=== PATIENT | male | born 1965 | race Caucasian/White ===

== ENCOUNTER 2018-07-18 11:19 | Inpatient (IN) | payer OTHER ==
[~2018-07-18] VITALS: Ht 170.2 cm; Wt 55.9 kg
[2018-07-18] MEDS ORDERED: SODIUM CHLORIDE 0.9% 1,000 ML IV ONE ×2 (12:21→20:30)
[2018-07-18] MEDS ORDERED: ACETAMINOPHEN 325 MG TABLET PO ONE (12:30)
[2018-07-18 12:46] LABS: APPEARANCE,URINE CLEAR (CLEAR); BILIRUBIN,URINE NEGATIVE (NEGATIVE); GLUCOSE, URINE (UA) NEGATIVE (NEGATIVE); KETONES,URINE NEGATIVE (NEGATIVE); LEUKOCYTE ESTERASE ,URINE NEGATIVE (NEGATIVE); NITRATE,URINE NEGATIVE (NEGATIVE); OCCULT BLOOD,URINE NEGATIVE (NEGATIVE); PROTEIN,URINE NEGATIVE (NEGATIVE)
[2018-07-18 13:04] LABS: INFLUENZA TYPE A NEGATIVE FOR TYPE A (NEGATIVE); INFLUENZA TYPE B NEGATIVE FOR TYPE B (NEGATIVE)
[2018-07-18 13:22] LABS: BASOPHILS % (AUTO) 1.9 % (0.0-2.0); EOSINOPHILS % (AUTO) 0.8 % (1.0-6.0); HEMATOCRIT 28.8 % (41-53); HEMOGLOBIN 9.7 g/dL (13.5-17.5); LYMPHOCYTES # (AUTO) 0.5 K/uL (1.0-4.8); LYMPHOCYTES % (AUTO) 61.4 % (22.0-44.0); MEAN CORPUSCULAR HEMOGLOBIN 30.5 pg (26.0-34.0); MEAN CORPUSCULAR HGB CONC 33.5 G/dL (31.0-37.0); MEAN CORPUSCULAR VOLUME 91 fL (80-100); MONOCYTES # (AUTO) 0.2 K/uL (0.1-1.0); NEUTROPHILS # (AUTO) 0.1 K/uL (1.8-7.7); NEUTROPHILS % (AUTO) 14.9 % (40.0-70.0); PLATELET COUNT (AUTO) 116 K/uL (150-450); RED BLOOD CELL COUNT(AUTO) 3.16 MIL/uL (4.50-5.90); RED CELL DISTRIBUTION WIDTH 16.5 % (11.5-14.5)
[2018-07-18] MEDS ORDERED: AZITHROMYCIN 500 MG/NS 250 ML IV ONE (13:30)
[2018-07-18] MEDS ORDERED: CefTRIAXone 1 GM/DEXTROSE 50 ML IV ONE (13:30)
[2018-07-18 13:37] LABS: ANION GAP 7 mmol/L (8-16); CALCIUM, TOTAL 7.7 mg/dL (8.8-10.5); CARBON DIOXIDE 29 mmol/L (22-29); CHLORIDE 99 mmol/L (98-107); CREATININE 0.36 mg/dL (0.60-1.30); GLOMERULAR FILTR. RATE CALC > 60 mL/min (>60); GLUCOSE,RANDOM 80 mg/dL (70-110); INR 0.9 (0.9-1.1); POTASSIUM 4.4 mmol/L (3.5-5.1); PROTHROMBIN TIME 9.5 SEC (9.4-11.6); SODIUM SERUM 135 mmol/L (136-145); UREA NITROGEN, BLOOD 10 mg/dL (7-18)
[2018-07-18 13:42] LABS: ALANINE AMINOTRANSFERASE 379 U/L (12-78); ALBUMIN 1.8 g/dL (3.4-5.0); ALKALINE PHOSPHATASE 179 U/L (46-116); ASPARTATE AMINOTRANSFERASE 134 U/L (15-37); BILIRUBIN,TOTAL 0.5 mg/dL (0.1-1.0); CREATINE KINASE, TOTAL ONLY 29 U/L (39-308)
[2018-07-18 13:47] LABS: LACTIC ACID 1.5 mmol/L (0.4-2.0)
[2018-07-18] MEDS ORDERED: ACETAMINOPHEN 325 MG TABLET PO PRN (14:00)
[2018-07-18] MEDS ORDERED: ONDANSETRON HCL 4 MG/2 ML VIAL IVP PRN (14:00)
[2018-07-18 15:59] VITALS: BP 122/77
[2018-07-18] MEDS: LEVOFLOXACIN 750 MG/D5% WATER 150 ML IV SCH (18:01)
[2018-07-18] MEDS ORDERED: MAGNESIUM HYDROXIDE SUSPENSION 30 ML UDCUP PO PRN (20:15)
[2018-07-18] MEDS ORDERED: BISACODYL 10 MG RECTAL RECTAL SUPPOSITORY PR PRN (20:15)
[2018-07-18 20:24] VITALS: BP 133/77
[2018-07-18] MEDS: CEFEPIME HCL 2 GM in DEXTROSE 5%-WATER 50 ML IV SCH (20:59)
[2018-07-18] MEDS: DOCUSATE SODIUM 100 MG CAPSULE PO SCH (20:59)
[2018-07-18] MEDS: ZOLPIDEM TARTRATE 5 MG TABLET PO PRN (21:14)
[2018-07-18 23:45] VITALS: BP 137/91
[2018-07-18] MEDS: HEPARIN SODIUM,PORCINE 5,000 UNITS/ML VIAL SQ SCH (23:46)
[2018-07-19] MEDS: ACETAMINOPHEN 325 MG TABLET PO PRN ×2 (00:28→05:26)
[2018-07-19] MEDS: CEFEPIME HCL 2 GM in DEXTROSE 5%-WATER 50 ML IV SCH ×3 (04:08→20:30)
[2018-07-19 04:42] VITALS: BP 143/97
[2018-07-19 08:11] VITALS: BP 147/93
[2018-07-19] MEDS: DOCUSATE SODIUM 100 MG CAPSULE PO SCH ×2 (08:19→20:13)
[2018-07-19] MEDS: PANTOPRAZOLE SODIUM 40 MG DR TABLET PO SCH (08:19)
[2018-07-19] MEDS: HEPARIN SODIUM,PORCINE 5,000 UNITS/ML VIAL SQ SCH ×2 (08:19→15:00)
[2018-07-19] MEDS ORDERED: MORPHINE SULFATE 4 MG/ML SYRINGE IVP PRN (10:45)
[2018-07-19 11:00] VITALS: BP 140/88
[2018-07-19] MEDS ORDERED: SODIUM CHLORIDE 0.9% 500 ML IV ONE (11:21)
[2018-07-19] MEDS: ONDANSETRON HCL 4 MG/2 ML VIAL IVP PRN (14:59)
[2018-07-19] MEDS: MORPHINE SULFATE 4 MG/ML SYRINGE IVP PRN ×2 (14:59→20:08)
[2018-07-19 15:07] VITALS: BP 135/87
[2018-07-19 16:01] LABS: HEMATOCRIT 36.2 % (41-53); HEMOGLOBIN 11.8 g/dL (13.5-17.5); MEAN CORPUSCULAR HEMOGLOBIN 29.7 pg (26.0-34.0); MEAN CORPUSCULAR HGB CONC 32.6 G/dL (31.0-37.0); MEAN CORPUSCULAR VOLUME 91 fL (80-100); PLATELET COUNT (AUTO) 155 K/uL (150-450); RED BLOOD CELL COUNT(AUTO) 3.98 MIL/uL (4.50-5.90); RED CELL DISTRIBUTION WIDTH 17.6 % (11.5-14.5)
[2018-07-19] MEDS: LEVOFLOXACIN 750 MG/D5% WATER 150 ML IV SCH (17:36)
[2018-07-19] MEDS: HYDROCODONE/ACETAMINOPHEN 5-325 MG TABLET PO PRN ×2 (17:40→23:05)
[2018-07-19 19:15] LABS: BAND NEUTROPHILS % (MANUAL) 0 % (0-5)
[2018-07-19 19:16] LABS: BUFFY COAT SMEAR PREP YES (NOT DONE); EOSINOPHILS % (MANUAL) 1 % (1-6); LYMPHOCYTES % (MANUAL) 56 % (22-44); MONOCYTES % (MANUAL) 19 % (2-9); SEGMENTED NEUTROPHILS % 24 % (40-70)
[2018-07-19 19:29] VITALS: BP 139/85
[2018-07-20 00:09] VITALS: BP 133/80
[2018-07-20] MEDS: MORPHINE SULFATE 4 MG/ML SYRINGE IVP PRN ×4 (00:12→09:01)
[2018-07-20 04:05] VITALS: BP 125/86
[2018-07-20] MEDS: CEFEPIME HCL 2 GM in DEXTROSE 5%-WATER 50 ML IV SCH ×3 (04:55→20:00)
[2018-07-20] MEDS: HYDROCODONE/ACETAMINOPHEN 5-325 MG TABLET PO PRN ×3 (05:34→19:46)
[2018-07-20 07:37] VITALS: BP 131/82
[2018-07-20] MEDS: HEPARIN SODIUM,PORCINE 5,000 UNITS/ML VIAL SQ SCH ×3 (08:00→16:00)
[2018-07-20] MEDS: DOCUSATE SODIUM 100 MG CAPSULE PO SCH ×2 (09:00→21:00)
[2018-07-20] MEDS: PANTOPRAZOLE SODIUM 40 MG DR TABLET PO SCH (09:00)
[2018-07-20 11:40] VITALS: BP 114/79
[2018-07-20 15:34] VITALS: BP 137/60
[2018-07-20] MEDS: LEVOFLOXACIN 750 MG/D5% WATER 150 ML IV SCH (17:11)
[2018-07-21 00:19] VITALS: BP 108/70
[2018-07-21] MEDS: HYDROCODONE/ACETAMINOPHEN 5-325 MG TABLET PO PRN ×5 (00:40→21:27)
[2018-07-21] MEDS: NICOTINE 14 MG/24 HOUR PATCH TD SCH ×2 (01:10→16:02)
[2018-07-21] MEDS: ACETAMINOPHEN 325 MG TABLET PO PRN (03:06)
[2018-07-21 04:00] VITALS: BP 133/84
[2018-07-21] MEDS: CEFEPIME HCL 2 GM in DEXTROSE 5%-WATER 50 ML IV SCH ×3 (04:00→13:25)
[2018-07-21 06:09] LABS: BASOPHILS % (AUTO) 0.4 % (0.0-2.0); EOSINOPHILS % (AUTO) 0.5 % (1.0-6.0); HEMATOCRIT 28.6 % (41-53); HEMOGLOBIN 9.6 g/dL (13.5-17.5); LYMPHOCYTES # (AUTO) 0.7 K/uL (1.0-4.8); LYMPHOCYTES % (AUTO) 30.3 % (22.0-44.0); MEAN CORPUSCULAR HEMOGLOBIN 30.3 pg (26.0-34.0); MEAN CORPUSCULAR HGB CONC 33.7 G/dL (31.0-37.0); MEAN CORPUSCULAR VOLUME 90 fL (80-100); MONOCYTES # (AUTO) 0.5 K/uL (0.1-1.0); MONOCYTES % (AUTO) 21.1 % (2.0-9.0); NEUTROPHILS # (AUTO) 1.1 K/uL (1.8-7.7); NEUTROPHILS % (AUTO) 47.7 % (40.0-70.0); PLATELET COUNT (AUTO) 252 K/uL (150-450); RED BLOOD CELL COUNT(AUTO) 3.18 MIL/uL (4.50-5.90); RED CELL DISTRIBUTION WIDTH 17.2 % (11.5-14.5)
[2018-07-21 07:51] VITALS: BP 127/87
[2018-07-21] MEDS: HEPARIN SODIUM,PORCINE 5,000 UNITS/ML VIAL SQ SCH ×3 (08:00→16:00)
[2018-07-21] MEDS ORDERED: NICOTINE 14 MG/24 HOUR PATCH TD SCH ×2 (09:00)
[2018-07-21] MEDS: DOCUSATE SODIUM 100 MG CAPSULE PO SCH ×2 (09:01→21:20)
[2018-07-21] MEDS: PANTOPRAZOLE SODIUM 40 MG DR TABLET PO SCH (09:02)
[2018-07-21 09:13] LABS: LEGIONELLA PNEUMO AG URINE Negative (Negative); ORGANISM ID Not indicated.; S PNEUMO SOURCE Urine; STREP PNEUMONIAE AG URINE Negative (Negative); STREP.PNEUMO BODY FLUID CULT. Not Indicated
[2018-07-21 11:41] VITALS: BP 129/83
[2018-07-21] MEDS: MORPHINE SULFATE 4 MG/ML SYRINGE IVP PRN ×2 (13:25→19:43)
[2018-07-21 16:00] VITALS: BP 115/83
[2018-07-21] MEDS: LEVOFLOXACIN 250 MG TABLET PO SCH (17:07)
[2018-07-21 19:45] VITALS: BP 126/81
[2018-07-22] VITALS (7 sets, daily range): BP systolic 123–140; BP diastolic 80–92
[2018-07-22] MEDS: ZOLPIDEM TARTRATE 5 MG TABLET PO PRN ×2 (00:10→21:58)
[2018-07-22] MEDS: HYDROCODONE/ACETAMINOPHEN 5-325 MG TABLET PO PRN ×5 (05:15→21:58)
[2018-07-22 06:19] LABS: ALANINE AMINOTRANSFERASE 282 U/L (12-78); ALBUMIN 1.9 g/dL (3.4-5.0); ALKALINE PHOSPHATASE 153 U/L (46-116); ANION GAP 6 mmol/L (8-16); ASPARTATE AMINOTRANSFERASE 149 U/L (15-37); BILIRUBIN,TOTAL 0.5 mg/dL (0.1-1.0); CALCIUM, TOTAL 8.2 mg/dL (8.8-10.5); CARBON DIOXIDE 29 mmol/L (22-29); CHLORIDE 99 mmol/L (98-107); CREATININE 0.53 mg/dL (0.60-1.30); GLOMERULAR FILTR. RATE CALC > 60 mL/min (>60); GLUCOSE,RANDOM 84 mg/dL (70-110); SODIUM SERUM 134 mmol/L (136-145); TOTAL PROTEIN, SERUM 6.1 g/dL (6.4-8.2); UREA NITROGEN, BLOOD 16 mg/dL (7-18)
[2018-07-22] MEDS: MORPHINE SULFATE 4 MG/ML SYRINGE IVP PRN ×2 (06:24→20:37)
[2018-07-22 06:30] LABS: BASOPHILS % (AUTO) 0.3 % (0.0-2.0); EOSINOPHILS % (AUTO) 0.5 % (1.0-6.0); HEMATOCRIT 31.2 % (41-53); HEMOGLOBIN 10.8 g/dL (13.5-17.5); LYMPHOCYTES # (AUTO) 0.8 K/uL (1.0-4.8); LYMPHOCYTES % (AUTO) 23.1 % (22.0-44.0); MEAN CORPUSCULAR HEMOGLOBIN 31.2 pg (26.0-34.0); MEAN CORPUSCULAR HGB CONC 34.5 G/dL (31.0-37.0); MEAN CORPUSCULAR VOLUME 91 fL (80-100); MONOCYTES # (AUTO) 0.7 K/uL (0.1-1.0); MONOCYTES % (AUTO) 18.6 % (2.0-9.0); NEUTROPHILS # (AUTO) 2.1 K/uL (1.8-7.7); NEUTROPHILS % (AUTO) 57.5 % (40.0-70.0); PLATELET COUNT (AUTO) 327 K/uL (150-450); RED BLOOD CELL COUNT(AUTO) 3.45 MIL/uL (4.50-5.90); RED CELL DISTRIBUTION WIDTH 16.8 % (11.5-14.5)
[2018-07-22] MEDS: PANTOPRAZOLE SODIUM 40 MG DR TABLET PO SCH (08:16)
[2018-07-22] MEDS: DOCUSATE SODIUM 100 MG CAPSULE PO SCH ×2 (08:16→20:39)
[2018-07-22] MEDS: LEVOFLOXACIN 250 MG TABLET PO SCH (08:16)
[2018-07-22] MEDS: HEPARIN SODIUM,PORCINE 5,000 UNITS/ML VIAL SQ SCH ×4 (08:16→23:10)
[2018-07-22] MEDS: NICOTINE 14 MG/24 HOUR PATCH TD SCH (08:17)
[2018-07-22] MEDS ORDERED: LEVO250 PO (13:00)
[2018-07-22] MEDS ORDERED: OXYC10 PO (13:01)
[2018-07-23] MEDS: HYDROCODONE/ACETAMINOPHEN 5-325 MG TABLET PO PRN ×2 (03:52→11:59)
[2018-07-23 04:37] VITALS: BP 123/87
[2018-07-23] MEDS: MORPHINE SULFATE 4 MG/ML SYRINGE IVP PRN ×2 (06:50→10:37)
[2018-07-23 07:38] VITALS: BP 136/86
[2018-07-23] MEDS: HEPARIN SODIUM,PORCINE 5,000 UNITS/ML VIAL SQ SCH ×2 (09:04→17:02)
[2018-07-23] MEDS: NICOTINE 14 MG/24 HOUR PATCH TD SCH (09:05)
[2018-07-23] MEDS: LEVOFLOXACIN 250 MG TABLET PO SCH (09:05)
[2018-07-23] MEDS: PANTOPRAZOLE SODIUM 40 MG DR TABLET PO SCH (09:05)
[2018-07-23] MEDS: DOCUSATE SODIUM 100 MG CAPSULE PO SCH ×2 (09:05→20:27)
[2018-07-23 11:10] VITALS: BP 116/88
[2018-07-23] MEDS: OxyCODONE HCL 5 MG IR TABLET PO PRN ×2 (14:50→21:07)
[2018-07-23 15:12] VITALS: BP 115/77
[2018-07-23] MEDS: ONDANSETRON HCL 4 MG/2 ML VIAL IVP PRN (18:59)
[2018-07-23 19:39] VITALS: BP 126/89
[2018-07-23] MEDS: ZOLPIDEM TARTRATE 5 MG TABLET PO PRN (21:12)
[2018-07-24] MEDS: HEPARIN SODIUM,PORCINE 5,000 UNITS/ML VIAL SQ SCH ×3 (00:18→16:00)
[2018-07-24 00:20] VITALS: BP 112/82
[2018-07-24] MEDS: OxyCODONE HCL 5 MG IR TABLET PO PRN ×4 (03:08→22:17)
[2018-07-24] MEDS: ONDANSETRON HCL 4 MG/2 ML VIAL IVP PRN ×2 (03:51→14:01)
[2018-07-24 04:00] VITALS: BP 138/94
[2018-07-24 07:17] VITALS: BP 145/93
[2018-07-24] MEDS: PANTOPRAZOLE SODIUM 40 MG DR TABLET PO SCH (07:59)
[2018-07-24] MEDS: LEVOFLOXACIN 250 MG TABLET PO SCH (07:59)
[2018-07-24] MEDS: DOCUSATE SODIUM 100 MG CAPSULE PO SCH ×2 (08:00→21:00)
[2018-07-24] MEDS: NICOTINE 14 MG/24 HOUR PATCH TD SCH (08:00)
[2018-07-24 11:36] VITALS: BP 127/89
[2018-07-24] MEDS ORDERED: OxyCODONE HCL 5 MG IR TABLET PO ONE (12:15)
[2018-07-24 15:07] VITALS: BP 125/91
[2018-07-24] MEDS ORDERED: SIMETHICONE 80 MG CHEWABLE TABLET CHEW PRN (15:30)
[2018-07-24 19:39] VITALS: BP 135/76
[2018-07-24] MEDS: ZOLPIDEM TARTRATE 5 MG TABLET PO PRN (22:17)
[2018-07-25] VITALS (7 sets, daily range): BP systolic 110–136; BP diastolic 75–91
[2018-07-25] MEDS: OxyCODONE HCL 5 MG IR TABLET PO PRN ×4 (04:08→21:35)
[2018-07-25] MEDS: ONDANSETRON HCL 4 MG/2 ML VIAL IVP PRN (04:09)
[2018-07-25] MEDS: PANTOPRAZOLE SODIUM 40 MG DR TABLET PO SCH (08:25)
[2018-07-25] MEDS: HEPARIN SODIUM,PORCINE 5,000 UNITS/ML VIAL SQ SCH ×3 (08:26→21:38)
[2018-07-25] MEDS: DOCUSATE SODIUM 100 MG CAPSULE PO SCH ×2 (08:26→21:35)
[2018-07-25] MEDS: NICOTINE 14 MG/24 HOUR PATCH TD SCH (08:26)
[2018-07-25] MEDS: LEVOFLOXACIN 250 MG TABLET PO SCH (08:26)
[2018-07-25 11:59] LABS: GLUCOMETER DEV NAME(LOC) 6N.1; GLUCOSE,POINT OF CARE 123 MG/DL (70-110)
[2018-07-25] MEDS: LORazepam 2 MG TABLET PO PRN ×2 (17:16→23:34)
[2018-07-25] MEDS: ZOLPIDEM TARTRATE 5 MG TABLET PO PRN (22:53)
[2018-07-26 04:37] VITALS: BP 130/89
[2018-07-26 07:30] VITALS: BP 139/92
[2018-07-26] MEDS: NICOTINE 14 MG/24 HOUR PATCH TD SCH (08:12)
[2018-07-26] MEDS: HEPARIN SODIUM,PORCINE 5,000 UNITS/ML VIAL SQ SCH ×2 (08:13→19:53)
[2018-07-26] MEDS: LORazepam 2 MG TABLET PO PRN ×3 (08:13→19:53)
[2018-07-26] MEDS: PANTOPRAZOLE SODIUM 40 MG DR TABLET PO SCH (08:13)
[2018-07-26] MEDS: DOCUSATE SODIUM 100 MG CAPSULE PO SCH ×2 (08:13→19:53)
[2018-07-26] MEDS: OxyCODONE HCL 5 MG IR TABLET PO PRN ×3 (10:30→22:34)
[2018-07-26 11:15] VITALS: BP 130/90
[2018-07-26 12:14] LABS: GLUCOMETER DEV NAME(LOC) 6N.1; GLUCOSE,POINT OF CARE 97 MG/DL (70-110)
[2018-07-26 15:25] VITALS: BP 126/92
[2018-07-26 19:38] VITALS: BP 122/81
[2018-07-26 23:07] VITALS: BP 136/86
[2018-07-27] MEDS: LORazepam 2 MG TABLET PO PRN ×3 (03:07→16:02)
[2018-07-27 05:34] VITALS: BP 134/84
[2018-07-27 07:33] VITALS: BP 128/81
[2018-07-27] MEDS: PANTOPRAZOLE SODIUM 40 MG DR TABLET PO SCH (08:18)
[2018-07-27] MEDS: DOCUSATE SODIUM 100 MG CAPSULE PO SCH (08:18)
[2018-07-27] MEDS: HEPARIN SODIUM,PORCINE 5,000 UNITS/ML VIAL SQ SCH (08:18)
[2018-07-27] MEDS: NICOTINE 14 MG/24 HOUR PATCH TD SCH (08:19)
[2018-07-27] MEDS: OxyCODONE HCL 5 MG IR TABLET PO PRN ×2 (08:21→14:27)
[2018-07-27 11:20] VITALS: BP 147/94
[2018-07-27 15:50] VITALS: BP 140/89
== END 2018-07-27 17:28 | disposition home or self-care (01) | DRG 720 ==
LOC: EMS 11:20 → 6N 14:34
PROVIDERS: ADMIT Internal Medicine; ATTEND Internal Medicine
DX: A41.9 Sepsis, unspecified organism (principal); J96.01 Acute respiratory failure with hypoxia; E43 Unspecified severe protein-calorie malnutrition; J90 Pleural effusion, not elsewhere classified; J18.9 Pneumonia, unspecified organism; C16.9 Malignant neoplasm of stomach, unspecified; F11.20 Opioid dependence, uncomplicated; D70.3 Neutropenia due to infection; C78.2 Secondary malignant neoplasm of pleura; C34.90 Malignant neoplasm of unspecified part of unspecified bronchus or lung; F20.9 Schizophrenia, unspecified; F17.210 Nicotine dependence, cigarettes, uncomplicated; B18.2 Chronic viral hepatitis C; B18.1 Chronic viral hepatitis B without delta-agent; J44.0 Chronic obstructive pulmonary disease with (acute) lower respiratory infection; Z66 Do not resuscitate; F19.10 Other psychoactive substance abuse, uncomplicated; Z85.028 Personal history of other malignant neoplasm of stomach; Z85.118 Personal history of other malignant neoplasm of bronchus and lung; Z68.1 Body mass index [BMI] 19.9 or less, adult; Z86.14 Personal history of Methicillin resistant Staphylococcus aureus infection
CPT/HCPCS: 83605; 84145; 85009; 87040; 87070; 87081; 87449; 87804; 87899; 90686; 93005; 96365; 96366; G0378; J0456; J0692; J0696; J1644; J1956; J2270; J2405; J7030; J7040; J7060

== ENCOUNTER 2018-08-06 21:20 | Emergency (ER) | payer OTHER ==
[~2018-08-06] VITALS: Ht 170.2 cm; Wt 59.1 kg
[~2018-08-06 21:20] MED LIST: LEVO250 PO; OXYC10 PO
[2018-08-06 22:57] LABS: BASOPHILS % (AUTO) 1.2 % (0.0-2.0); EOSINOPHILS % (AUTO) 0.1 % (1.0-6.0); HEMATOCRIT 32.4 % (41-53); HEMOGLOBIN 10.7 g/dL (13.5-17.5); LYMPHOCYTES # (AUTO) 1.3 K/uL (1.0-4.8); LYMPHOCYTES % (AUTO) 10.3 % (22.0-44.0); MEAN CORPUSCULAR HEMOGLOBIN 30.1 pg (26.0-34.0); MEAN CORPUSCULAR HGB CONC 32.9 G/dL (31.0-37.0); MEAN CORPUSCULAR VOLUME 91 fL (80-100); MONOCYTES # (AUTO) 1.4 K/uL (0.1-1.0); MONOCYTES % (AUTO) 11.7 % (2.0-9.0); NEUTROPHILS # (AUTO) 9.5 K/uL (1.8-7.7); NEUTROPHILS % (AUTO) 76.7 % (40.0-70.0); PLATELET COUNT (AUTO) 386 K/uL (150-450); RED BLOOD CELL COUNT(AUTO) 3.55 MIL/uL (4.50-5.90); RED CELL DISTRIBUTION WIDTH 17.5 % (11.5-14.5)
[2018-08-06 23:06] LABS: ANION GAP 7 mmol/L (8-16); CALCIUM, TOTAL 8.5 mg/dL (8.8-10.5); CARBON DIOXIDE 30 mmol/L (22-29); CHLORIDE 102 mmol/L (98-107); CREATININE 0.52 mg/dL (0.60-1.30); GLOMERULAR FILTR. RATE CALC > 60 mL/min (>60); GLUCOSE,RANDOM 90 mg/dL (70-110); POTASSIUM 3.7 mmol/L (3.5-5.1); SODIUM SERUM 139 mmol/L (136-145); UREA NITROGEN, BLOOD 9 mg/dL (7-18)
[2018-08-06 23:11] LABS: ALANINE AMINOTRANSFERASE 87 U/L (12-78); ALBUMIN 2.4 g/dL (3.4-5.0); ALKALINE PHOSPHATASE 125 U/L (46-116); ASPARTATE AMINOTRANSFERASE 36 U/L (15-37); BILIRUBIN,TOTAL 0.3 mg/dL (0.1-1.0); LIPASE 266 U/L (73-393); TOTAL PROTEIN, SERUM 6.4 g/dL (6.4-8.2)
[2018-08-06] MEDS ORDERED: HYDROCODONE/ACETAMINOPHEN 5-325 MG TABLET PO ONE (23:15)
[2018-08-06] MEDS ORDERED: ONDANSETRON HCL 4 MG TABLET PO ONE (23:15)
[2018-08-07] MEDS ORDERED: QUEtiapine FUMARATE 100 MG TABLET PO ONE (00:15)
[2018-08-07 01:54] LABS: APPEARANCE,URINE CLEAR (CLEAR); BILIRUBIN,URINE NEGATIVE (NEGATIVE); GLUCOSE, URINE (UA) NEGATIVE (NEGATIVE); KETONES,URINE TRACE mg/dL (NEGATIVE); LEUKOCYTE ESTERASE ,URINE NEGATIVE (NEGATIVE); NITRATE,URINE NEGATIVE (NEGATIVE); OCCULT BLOOD,URINE NEGATIVE (NEGATIVE); PROTEIN,URINE NEGATIVE (NEGATIVE)
[2018-08-07 02:07] LABS: AMPHET/METH SCREEN,URINE POSITIVE (NEGATIVE); BARBITURATE SCREEN, URINE NEGATIVE (NEGATIVE); BENZODIAZEPINES SCREEN,URINE NEGATIVE (NEGATIVE); CANNABINOID SCREEN,URINE POSITIVE (NEGATIVE); COCAINE SCREEN,URINE NEGATIVE (NEGATIVE); METHADONE SCREEN, URINE NEGATIVE (NEGATIVE); OPIATE SCREEN,URINE POSITIVE (NEGATIVE); PHENCYCLIDINE SCREEN,URINE NEGATIVE (NEGATIVE)
[2018-08-07 02:48] VITALS: BP 143/91
== END 2018-08-07 02:49 | disposition home or self-care (01) ==
LOC: EMS 21:22
DX: F20.9 Schizophrenia, unspecified (principal); C25.9 Malignant neoplasm of pancreas, unspecified; C78.02 Secondary malignant neoplasm of left lung; F17.210 Nicotine dependence, cigarettes, uncomplicated; F12.90 Cannabis use, unspecified, uncomplicated; Z88.8 Allergy status to other drugs, medicaments and biological substances
CPT/HCPCS: 36415; 80053; 80307; 81003; 83690; 85025; 99284; G0480; Q0162

== ENCOUNTER 2018-08-26 12:50 | Emergency (ER) | payer OTHER ==
[~2018-08-26] VITALS: Ht 170.2 cm; Wt 47.7 kg
[~2018-08-26 12:50] MED LIST changes: -LEVO250 PO
[2018-08-26] MEDS ORDERED: CANCER PO (14:26)
[2018-08-26] MEDS: MAALOX/LIDOCAINE/NYSTATIN SUSP 5 ML ORAL.SYG PO ONE ×2 (17:00→17:37)
[2018-08-26] MEDS ORDERED: AZITHROMYCIN 500 MG/NS 250 ML IV ONE (18:15)
[2018-08-26] MEDS ORDERED: CefTRIAXone 1 GM/DEXTROSE 50 ML IV ONE (18:15)
[2018-08-26] MEDS ORDERED: IOVERSOL 320 MG/ML 100 ML VIAL ONE (18:20)
[2018-08-26] MEDS ORDERED: SODIUM CHLORIDE 0.9% 0 ML ONE (18:20)
[2018-08-26 18:45] VITALS: BP 178/124
[2018-08-27] MEDS ORDERED: FENTANYL SD (04:23)
== END 2018-08-26 19:00 | disposition left against medical advice (07) ==
LOC: EMS 12:50
DX: J69.0 Pneumonitis due to inhalation of food and vomit (principal); B37.0 Candidal stomatitis; F20.9 Schizophrenia, unspecified; F12.90 Cannabis use, unspecified, uncomplicated; F17.210 Nicotine dependence, cigarettes, uncomplicated; Z88.8 Allergy status to other drugs, medicaments and biological substances
CPT/HCPCS: 93005; 99406; J0456; J0696; J7050

== ENCOUNTER 2018-08-27 03:59 | Emergency (ER) | payer OTHER ==
[~2018-08-27] VITALS: Ht 170.2 cm; Wt 59.0 kg
[~2018-08-27 03:59] MED LIST changes: +CANCER PO
[2018-08-27] MEDS ORDERED: FENTANYL SD (04:23)
[2018-08-27] MEDS ORDERED: ONDANSETRON HCL 4 MG/2 ML VIAL IVP ONE (07:00)
[2018-08-27] MEDS ORDERED: SODIUM CHLORIDE 0.9% 1,000 ML IV ONE (07:00)
[2018-08-27] MEDS ORDERED: IOVERSOL 350 MG/ML 100 ML VIAL ONE (07:00)
[2018-08-27 08:57] LABS: INFLUENZA TYPE A NEGATIVE FOR TYPE A (NEGATIVE); INFLUENZA TYPE B NEGATIVE FOR TYPE B (NEGATIVE)
[2018-08-27 09:32] LABS: EOSINOPHILS % (AUTO) 0 % (1.0-6.0); HEMATOCRIT 41.1 % (41-53); HEMOGLOBIN 13.5 g/dL (13.5-17.5); LYMPHOCYTES # (AUTO) 0.4 K/uL (1.0-4.8); LYMPHOCYTES % (AUTO) 2.3 % (22.0-44.0); MEAN CORPUSCULAR HEMOGLOBIN 29.8 pg (26.0-34.0); MEAN CORPUSCULAR HGB CONC 32.9 G/dL (31.0-37.0); MEAN CORPUSCULAR VOLUME 91 fL (80-100); MONOCYTES # (AUTO) 0.7 K/uL (0.1-1.0); MONOCYTES % (AUTO) 3.8 % (2.0-9.0); NEUTROPHILS # (AUTO) 17.8 K/uL (1.8-7.7); PLATELET COUNT (AUTO) 226 K/uL (150-450); RED BLOOD CELL COUNT(AUTO) 4.54 MIL/uL (4.50-5.90); RED CELL DISTRIBUTION WIDTH 16.1 % (11.5-14.5)
[2018-08-27 09:36] LABS: NEUTROPHILS % (AUTO) 93.9 % (40.0-70.0)
[2018-08-27 09:41] VITALS: BP 135/97
[2018-08-27 09:52] LABS: ANION GAP 8 mmol/L (8-16); CALCIUM, TOTAL 9.3 mg/dL (8.8-10.5); CARBON DIOXIDE 34 mmol/L (22-29); CHLORIDE 107 mmol/L (98-107); CREATININE 0.63 mg/dL (0.60-1.30); GLOMERULAR FILTR. RATE CALC > 60 mL/min (>60); GLUCOSE,RANDOM 88 mg/dL (70-110); SODIUM SERUM 149 mmol/L (136-145); UREA NITROGEN, BLOOD 17 mg/dL (7-18)
[2018-08-27 09:58] LABS: ALANINE AMINOTRANSFERASE 129 U/L (12-78); ALBUMIN 2.9 g/dL (3.4-5.0); ALKALINE PHOSPHATASE 100 U/L (46-116); ASPARTATE AMINOTRANSFERASE 68 U/L (15-37); BILIRUBIN,TOTAL 0.7 mg/dL (0.1-1.0); TOTAL PROTEIN, SERUM 7.4 g/dL (6.4-8.2)
[2018-08-27 10:24] LABS: LACTIC ACID 2.5 mmol/L (0.4-2.0)
== END 2018-08-27 09:55 | disposition left against medical advice (07) ==
LOC: EMS 04:00
DX: J18.9 Pneumonia, unspecified organism (principal); R11.2 Nausea with vomiting, unspecified; R10.9 Unspecified abdominal pain; F11.20 Opioid dependence, uncomplicated; F17.210 Nicotine dependence, cigarettes, uncomplicated; F12.90 Cannabis use, unspecified, uncomplicated; Z79.899 Other long term (current) drug therapy; Z88.8 Allergy status to other drugs, medicaments and biological substances; Z85.89 Personal history of malignant neoplasm of other organs and systems; F20.9 Schizophrenia, unspecified; Z85.028 Personal history of other malignant neoplasm of stomach; Z85.118 Personal history of other malignant neoplasm of bronchus and lung
CPT/HCPCS: 36415; 71250; 72192; 74150; 80053; 83605; 85025; 87804; 93005; 99285; J7030; J2405